=== PATIENT | female | born 1945 | race Caucasian/White ===

== ENCOUNTER → 2023-06-29 | Emergency (ER) | payer OTHER, MEDICARE ==
[~2023-06-29] MED LIST: KETOROLAC 30 MG/ML INJ ONE
--- OUTSIDE RECORDS SUMMARY | 2023-06-29 03:14 | XMS REPORT | Continuity of Care Document ---
Author Name Unknown Address [address] [facility] [address] [place] [address] [facility] thconnect Address [address] [facility] 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 Role Phone Kelechi Santino Rebecca Primary Care Physician [phone] Pool Jarvis DPM Attending Clinician [phone] POOL JARVIS Attending Clinician Unavailable Pool Jarvis DPM Admitting Clinician [phone] POOL JARVIS Admitting Clinician Unavailable Payers Payer Name Policy Type Policy Number Effective Date Expirati on Date Source Allergies, Adverse Reactions, Alerts Allergy Name Allergy Type Status Severity Reaction(s) Onset Date Inactive Date Treating Clinician Comments Source NO KNOWN ALLERGIE S Drug Class Active [facility] Social History Social Habit Start Date Stop Date Quantity Comments Source [facility] of Social function 2023-04-26 00:00:00 2023-04-26 00:00:00 [facility] Tobacco use and exposure 2023-04-22 00:00:00 2023-04-22 00:00:00 Smokeless tobacco non-user [facility] Sex Assigned At 1945 00:00:00 1945 00:00:00 [facility] Smoking Status Start Date Stop Date Source Never smoked tobacco [facility] Medications Ordered Medication Name Filled Medication Name Start Date Stop Date Current Medication? Ordering Clinician Indication Dosage Frequency Signature (SIG) Comments Components Source montelukast 10 mg tablet 2022-05 08:47: 07 Yes 10mg Take 1 tablet by mouth. [facility] multivit/fo lic acid/vit K1 (WOMEN'S 50 PLUS ADVANCED ORAL) 2022-05 08:47: 07 Yes 1{tbl} Take 1 tablet by mouth in the morning. [facility] fish oil/borage/ flax/om3,6, 9 1 (OMEGA 3-6-9 ORAL) 2022-05 08:47: 07 Yes 1{capsu le} Take 1 capsule by mouth in the morning. [facility] Cholecalcif reed, Vitamin D3, (VITAMIN D3) 50 mcg (2,000 unit) capsule 2022-05 08:47: 07 Yes 2000U Take 1 capsule by mouth in the morning. [facility] plant stanol ayla (CHOLEST OFF ORAL) 2022-05 08:47: 07 Yes 2{tbl} Take 2 tablets by mouth in the morning. [facility] montelukast 10 mg tablet 2022-05 08:47: 07 Yes 10mg Take 1 tablet by mouth. [facility] multivit/fo lic acid/vit K1 (WOMEN'S 50 PLUS ADVANCED ORAL) 2022-05 08:47: 07 Yes 1{tbl} Take 1 tablet by mouth in the morning. [facility] fish oil/borage/ flax/om3,6, 9 1 (OMEGA 3-6-9 ORAL) 2022-05 08:47: 07 Yes 1{capsu le} Take 1 capsule by mouth in the morning. [facility] Cholecalcif reed, Vitamin D3, (VITAMIN D3) 50 mcg (2,000 unit) capsule 2022-05 08:47: 07 Yes 2000U Take 1 capsule by mouth in the morning. [facility] plant stanol ayla (CHOLEST OFF ORAL) 2022-05 08:47: 07 Yes 2{tbl} Take 2 tablets by mouth in the morning. [facility] montelukast 10 mg tablet 2022-05 08:47: 07 Yes 10mg Take 1 tablet by mouth. [facility] multivit/fo lic acid/vit K1 (WOMEN'S 50 PLUS ADVANCED ORAL) 2022-05 2 08:47: 07 Yes 1{tbl} Take 1 tablet by mouth in the morning. [facility] fish oil/borage/ flax/om3,6, 9 1 (OMEGA 3-6-9 ORAL) 2022-05 2 08:47: 07 Yes 1{capsu le} Take 1 capsule by mouth in the morning. [facility] Cholecalcif reed, Vitamin D3, (VITAMIN D3) 50 mcg (2,000 unit) capsule 2022-05 08:47: 07 Yes 2000U Take 1 capsule by mouth in the morning. [facility] plant stanol ayla (CHOLEST OFF ORAL) 2022-05 08:47: 07 Yes 2{tbl} Take 2 tablets by mouth in the morning. [facility] HYDROcodone -acetaminop hen (NORCO 5) 5-325 mg tablet 1 tablet 2022-05 16:45: 00 04-26 16:36 :00 No 1{tbl} 1 tablet, Oral, ONCE, 1 dose, On Sat04/26/23 at 1045, Routine, PACU [facility] HYDROcodone -acetaminop hen (NORCO 5) 5-325 mg tablet 1 tablet 2022-05 16:45: 00 04-26 16:36 :00 No 1{tbl} 1 tablet, Oral, ONCE, 1 dose, On Sat04/26/23 at 1045, Routine, PACU [facility] HYDROcodone -acetaminop hen (NORCO 5) 5-325 mg tablet 1 tablet 2022-05 16:45: 00 04-26 16:36 :00 No 1{tbl} 1 tablet, Oral, ONCE, 1 dose, On Sat04/26/23 at 1045, Routine, PACU [facility] HYDROcodone -acetaminop hen (NORCO 5) 5-325 mg tablet 1 tablet 2022-05 16:45: 00 04-26 16:36 :00 No 1{tbl} 1 tablet, Oral, ONCE, 1 dose, On Sat04/26/23 at 1045, Routine, PACU [facility] ondansetron (ZOFRAN (PF)) injection 4 mg 2022-05 16:34: 00 Yes 4mg 4 mg, Slow IV Push, PRN, 1 dose, Starting on Sat04/26/23 at 1034, Until Discontinu ed, Routine, Nausea and Vomiting (N/V), PACU [facility] FENTanyl PF (SUBLIMAZE (PF)) injection 25 mcg 2022-05 16:34: 00 04-26 17:15 :00 No 25ug 25 mcg, Slow IV Push, Q5MIN PRN, 4 doses, Starting on Sat04/26/23 at 1034, Until Discontinu ed, Routine, Pain (scale 4-6), PACU [facility] FENTanyl PF (SUBLIMAZE (PF)) injection 25 mcg 2022-05 16:34: 00 04-26 17:15 :00 No 25ug 25 mcg, Slow IV Push, Q5MIN PRN, 4 doses, Starting on Sat04/26/23 at 1034, Until Discontinu ed, Routine, Pain (scale 4-6), PACU [facility] FENTanyl PF (SUBLIMAZE (PF)) injection 25 mcg 2022-05 16:34: 00 04-26 17:15 :00 No 25ug 25 mcg, Slow IV Push, Q5MIN PRN, 4 doses, Starting on Sat04/26/23 at 1034, Until Discontinu ed, Routine, Pain (scale 4-6), PACU [facility] FENTanyl PF (SUBLIMAZE (PF)) injection 25 mcg 2022-05 16:34: 00 04-26 17:15 :00 No 25ug 25 mcg, Slow IV Push, Q5MIN PRN, 4 doses, Starting on Sat04/26/23 at 1034, Until Discontinu ed, Routine, Pain (scale 4-6), PACU [facility] sodium chloride 0.9 % irrigation solution 2022-05 15:06: 00 04-26 16:48 :40 No PRN, Starting on Sat04/26/23 at 0906, Until Sat04/26/23 at 1048, Intra-op [facility] sodium chloride 0.9 % irrigation solution 2022-05 15:06: 00 04-26 16:48 :40 No PRN, Starting on Sat04/26/23 at 0906, Until Sat04/26/23 at 1048, Intra-op [facility] bupivacaine (preserv free) 0.5% (SENSORCAIN E MPF) 30 mL, lidocaine 1% (PF) (XYLOCAINE) 30 mL 2022-05 14:53: 00 04-26 16:48 :40 No PRN, Starting on Sat04/26/23 at 0853, Intra-op [facility] bupivacaine (preserv free) 0.5% (SENSORCAIN E MPF) 30 mL, lidocaine 1% (PF) (XYLOCAINE) 30 mL 2022-05 14:53: 00 04-26 16:48 :40 No PRN, Starting on Sat04/26/23 at 0853, Intra-op [facility] lactated ringers IV infusion 1,000 mL 2022-05 13:30: 00 04-26 13:39 :00 No 1000mL at 42 mL/hr, 1,000 mL, IV Infusion, ONCE, 1 dose, On Sat04/26/23 at 0730, Routine, DSU Pre-op [facility] lactated ringers IV infusion 1,000 mL 2022-05 13:30: 00 04-26 13:39 :00 No 1000mL at 42 mL/hr, 1,000 mL, IV Infusion, ONCE, 1 dose, On Sat04/26/23 at 0730, Routine, DSU Pre-op [facility] lactated ringers IV infusion 1,000 mL 2022-05 13:30: 00 04-26 13:39 :00 No 1000mL at 42 mL/hr, 1,000 mL, IV Infusion, ONCE, 1 dose, On Sat04/26/23 at 0730, Routine, [facility]SU [facility] lactated ringers [facility] infusion 1,000 mL 2022-05 13:30: 00 04-26 13:39 :00 No 1000mL at 42 mL/hr, 1,000 mL, IV Infusion, ONCE, 1 dose, On Sat04/26/23 at 0730, Routine, DSU Pre-op [facility] montelukast 10 mg tablet 2022-05 12:05: 20 Yes 10mg Take 1 tablet by mouth. [facility] multivit/fo lic acid/vit K1 (WOMEN'S 50 PLUS ADVANCED ORAL) 2022-05 12:05: 20 Yes 1{tbl} Take 1 tablet by mouth in the morning. [facility] fish oil/borage/ flax/om3,6, 9 1 (OMEGA 3-6-9 ORAL) 2022-05 12:05: 20 Yes 1{capsu le} Take 1 capsule by mouth in the morning. [facility] Cholecalcif reed, Vitamin D3, (VITAMIN D3) 50 mcg (2,000 unit) capsule 2022-05 12:05: 20 Yes 2000U Take 1 capsule by mouth in the morning. [facility] plant stanol ayla (CHOLEST OFF ORAL) 2022-05 12:05: 20 Yes 2{tbl} Take 2 tablets by mouth in the morning. [facility] aspirin 325 mg tablet 2022-05 00:00: 00 05-25 05:59 :00 Yes [id number] 325mg Take 1 tablet by mouth in the morning and 1 tablet in the evening. Take with meals. Do all this for 28 days. [facility] aspirin 325 mg tablet 2022-05 00:00: 00 05-25 05:59 :00 Yes [id number] 325mg Take 1 tablet by mouth in the morning and 1 tablet in the evening. Take with meals. Do all this for 28 days. [facility] aspirin 325 mg tablet 2022-05 00:00: 00 05-25 05:59 :00 Yes [id number] 325mg Take 1 tablet by mouth in the morning and 1 tablet in the evening. Take with meals. Do all this for 28 days. [facility] aspirin 325 mg tablet 2022-05 00:00: 00 05-25 05:59 :00 Yes [id number] 325mg Take 1 tablet by mouth in the morning and 1 tablet in the evening. Take with meals. Do all this for 28 days. [facility] Immunizations Ordered Immunization Name Filled Immunization Name Date Status Comments Source SARS-COV-2 COVID-19 PFIZER VACCINE Unknown Completed [facility] SARS-COV-2 COVID-19 PFIZER VACCINE Unknown Completed [facility] SARS-COV-2 COVID-19 PFIZER VACCINE Unknown Completed [facility] SARS-COV-2 COVID-19 PFIZER VACCINE Unknown Completed [facility] SARS-COV-2 COVID-19 PFIZER VACCINE Unknown Completed [facility] SARS-COV-2 COVID-19 PFIZER VACCINE Unknown Completed [facility] SARS-COV-2 COVID-19 PFIZER VACCINE Unknown Completed [facility] SARS-COV-2 COVID-19 PFIZER VACCINE Unknown Completed [facility] Vital Signs Vital Name Observation Time Observation Value Comments S ource Systolic blood pressure 2023-04-26 17:35:00 111 mm[Hg] [facility] Diastolic blood pressure 2023-04-26 17:35:00 68 mm[Hg] [facility] Heart rate 2023-04-26 17:35:00 87 /min [facility] Oxygen saturation in Arterial blood by Pulse oximetry 2023-04-26 17:35:00 94 /min [facility] Respiratory rate 2023-04-26 17:30:00 15 /min [facility] Body temperature 2023-04-26 16:10:00 36.67 Molly [facility] Body height 2023-04-22 22:00:00 165.1 cm [facility] Body weight 2023-04-22 22:00:00 78.019 kg [facility] BMI 2023-04-22 22:00:00 28.62 kg/m2 [facility] Systolic blood pressure 2023-04-26 16:15:00 131 mm[Hg] [facility] Diastolic blood pressure 2023-04-26 16:15:00 63 mm[Hg] [facility] Heart rate 2023-04-26 16:15:00 87 /min [facility] Respiratory rate 2023-04-26 16:15:00 15 /min [facility] Oxygen saturation in Arterial blood by Pulse oximetry 2023-04-26 16:15:00 97 /min [facility] Body temperature 2023-04-26 16:10:00 36.67 Molly [facility] Body height 2023-04-22 22:00:00 165.1 cm [facility] Body weight 2023-04-22 22:00:00 78.019 kg [facility] BMI 2023-04-22 22:00:00 28.62 kg/m2 [facility] Procedures Procedure Date / Time Performed Performing Clinician Source FL TIME OR (NON-REPORTABLE) 2023-04-26 16:45:00 Pool Jarvis [facility] FL TIME OR (NON-REPORTABLE) 2023-04-26 16:45:00 Pool Jarvis [facility] CHEILECTOMY 2023-04-26 14:15:00 Pool Jarvis [facility] ALLOGRAFT APPLICATION 2023-04-26 14:15:00 Marquis Jarvis [facility] CHEILECTOMY 2023-04-26 14:15:00 [facility] ALLOGRAFT APPLICATION 2023-04-26 14:15:00 Marquis Jarvis [facility] EXTERNAL PROVIDER RECORDS 2023-04-22 06:01:00 Doctor Unassigned, Higbee [facility] EXTERNAL PROVIDER RECORDS 2023-04-22 06:01:00 Doctor Unassigned, Higbee [facility] Encounters Start Date/Time End Date/Time Encounter Type Admission Type Attending Clinicians Care Facility Care Department Encounter ID Source 2023-04-26 07:14:00 2023-04-27 11:53:00 Hospital Encounter Pool Jarvis [facility] [id number] [facility] 2023-04-26 07:14:00 2023-04-26 11:53:00 Outpatient R POOL JARVIS [facility] [id number] [facility] 2023-04-26 08:00:00 2023-04-26 10:15:00 Surgery Pool Jarvis [facility] [id number] [facility]
[2023-06-29 06:13] LABS: Absolute Lymphocytes (CBC) 4.2 K/uL (0.7-4.9); Hematocrit 37.7 % (36.0-45.0); Lymphocytes % 30.2 % (15.3-44.8); MCV 84.3 fL (80-100); MPV 7.9 fL (7.6-11.3); Platelets 329 thou/uL (152-406); RBC Red Blood Cell Count 4.47 M/uL (3.86-4.86)
[2023-06-29 06:41] LABS: Potassium 3.7 mEq/L (3.5-5.1); Troponin High Sensitivity 7.5 pg/mL (<58.9)
--- NOTE | 2023-06-29 08:16 | ER ---
Nurse's Notes [facility] Name: Eileen Jett Age: 77 yrs Sex: Female : 1945 Arrival Date: 06/29/2023 Time: 03:11 Bed 18 Private MD: Santino Lorenz; Vamsi Lorenz C Diagnosis: Acute upper respiratory infection, unspecified;Sprain of ribs;Pleurisy Presentation: 06/29 03:26 Chief complaint: Patient states: Trang been sick for a couple weeks. I was put on jb4 amoxicillin and steroids for 9 days on Saturday. I get these coughing episodes and I used my inhaler and I got this pain in my back and my sides. I went to bed around midnight. I could hardly catch my breath. Its a sharp pain across my midback. Coronavirus screen: At this time, the client does not indicate any symptoms associated with coronavirus-19. Ebola Screen: No symptoms or risks identified at this time. Initial Sepsis Screen: Does the patient meet any 2 criteria? No. Patient's initial sepsis screen is negative. Does the patient have a suspected source of infection? No. Patient's initial sepsis screen is negative. Risk Assessment: Do you want to hurt yourself or someone else? Patient reports no desire to harm self or others. Onset of symptoms was June 29, 2023. Transition of care: patient was not received from another setting of care. 03:26 Method Of Arrival: Ambulatory jb4 03:26 Acuity: ACE 3 jb4 Historical: - Allergies: 03:28 No Known Allergies; jb4 - PMHx: 03:28 None; jb4 - PSHx: 03:28 Right first toe; hysterectomy; Appendectomy; Left foot; jb4 - Immunization history:: Adult Immunizations up to date. - Social history:: Smoking status: Patient/guardian denies using tobacco, the patient reports quitting approximately 41 years ago, Patient/guardian denies using alcohol, street drugs. - History obtained from: daughter. Screenin:55 [facility] ED Fall Risk Assessment (Adult) History of falling in the last 3 months, tm6 including since admission No falls in past 3 months (0 pts). Abuse screen: Denies threats or abuse. Denies injuries from another. Nutritional screening: No deficits noted. Tuberculosis screening: No symptoms or risk factors identified. Assessment: 03:55 General: Appears distressed, Behavior is cooperative. Pain: Complains of pain in right tm6 low back Pain currently is 9 out of 10 on a pain scale. Quality of pain is described as sharp, Aggravated by coughing. Neuro: Level of Consciousness is awake, alert, obeys commands, Oriented to person, place, time, situation. Cardiovascular: Capillary refill < 3 seconds Patient's skin is warm and dry. Respiratory: Reports cough that is non-productive, pain with cough pain with movement Airway is patent Respiratory effort is even, unlabored, Respiratory pattern is regular, symmetrical. GI: Abdomen is flat, non-distended. : No signs and/or symptoms were reported regarding the genitourinary system. EENT: No signs and/or symptoms were reported regarding the EENT system. Derm: No signs and/or symptoms reported regarding the dermatologic system. Musculoskeletal: No signs and/or symptoms reported regarding the musculoskeletal system. 05:36 Reassessment: Patient appears in no apparent distress at this time. No changes from tm6 previously documented assessment. Patient and/or family updated on plan of care and expected duration. Pain level reassessed. Patient is alert, oriented x 3, equal unlabored respirations, skin warm/dry/pink. 06:10 Reassessment: Patient appears in no apparent distress at this time. No changes from tm6 previously documented assessment. Patient and/or family updated on plan of care and expected duration. Pain level reassessed. 07:00 Reassessment: Patient appears in no apparent distress at this time. tm6 08:04 Reassessment: Patient appears in no apparent distress at this time. Patient and/or db family updated on plan of care and expected duration. Pain level reassessed. Patient is alert, oriented x 3, equal unlabored respirations, skin warm/dry/pink. Vital Signs: 03:26 BP 149 / 84; Pulse 81; Resp 20; Temp 99.1(TE); Pulse Ox 100% on R/A; Weight 77.11 kg jb4 (R); Height 5 ft. 5 in. (R); Pain 9/10; 05:35 BP 116 / 90; Pulse 76; Resp 23; Pulse Ox 100% on R/A; Pain 9/10; tm6 06:09 BP 155 / 74; Pulse 67; Pulse Ox 98% on R/A; Pain 6/10; tm6 07:00 BP 153 / 73; Pulse 81; Pulse Ox 97% on R/A; tm6 07:05 BP 145 / 73; Pulse 71; Resp 18; Pulse Ox 97% on R/A; db 07:30 BP 148 / 74; Pulse 69; Resp 27; Pulse Ox 98% on R/A; db 03:26 Body Mass Index 28.29 (77.11 kg, 165.1 cm) jb4 03:26 Pain Scale: Adult jb4 05:35 Pain Scale: Adult tm6 06:09 Pain Scale: Adult tm6 ED Course: 03:17 Patient arrived in ED. gm2 03:17 Vamsi Lorenz MD is Private Physician. gm2 03:17 Santino Lorenz MD is Private Physician. gm2 03:28 Triage completed. jb4 03:28 Arm band placed on right wrist. jb4 03:55 Rashaun Fitzgerald, DUANE is Primary Nurse. tm6 03:55 Patient has correct armband on for positive identification. Bed in low position. Call tm6 light in reach. Side rails up X2. Provided Education on: plan of care. Client placed on continuous cardiac and pulse oximetry monitoring. NIBP monitoring applied. Door closed. Noise minimized. Lights dimmed. Warm blanket given. 04:26 Camilla Cherry is Attending Physician. ci 05:40 COVID-19 SARS RT PCR Sent. tm6 05:40 Flu Sent. tm6 05:40 Inserted saline lock: 22 gauge in right antecubital area, using aseptic technique. tm6 05:41 Missed attempt(s): 20 gauge in right antecubital area. tm6 05:41 Missed attempt(s): 20 gauge in left antecubital area. tm6 05:56 XRAY Chest (1 view) In Process Unspecified. EDMS 05:58 CT Chest Wo Con In Process Unspecified. EDMS 08:20 No provider procedures requiring assistance completed. IV discontinued, intact, db bleeding controlled. Administered Medications: 05:40 Drug: TORadol - Ketorolac IVP 15 mg IVP once Route: IVP; Site: right antecubital; tm6 08:40 Follow up: Response: No adverse reaction db Medication: 03:55 VIS not applicable for this client. tm6 Outcome: 08:15 Discharge ordered by . ci 08:20 Discharged to home ambulatory, with family, lauren 08:20 Condition: stable 08:20 Discharge instructions given to patient, Instructed on discharge instructions, follow up and referral plans. Prescriptions given X 1, 08:40 Patient left the ED. db Signatures: Dispatcher [employer] EDMS Johnny Travis, RN RN jb4 Shakila Zazueta RN RN db Camilla Cherry Ginger 2 Rashaun Fitzgerald, RN RN tm6
--- NOTE | 2023-06-29 08:16 | EDPHYS ---
Physician Documentation [facility] Name: Eileen Jett Age: 77 yrs Sex: Female : 1945 Arrival Date: 06/29/2023 Time: 03:11 Bed 18 Private MD: Santino Lorenz; Vamsi Lorenz C ED Physician Camilla Cherry HPI: 06/29 08:00 This 77 yrs old Female presents to ER via Ambulatory with complaints of Back Pain. ci 08:00 Patient is a 77-year-old female who presents with right-sided rib pain that began last ci night after she was coughing. Patient was recently diagnosed with upper respiratory infection and started on steroids, Augmentin by PCP. Patient reports she had a bad bout of coughing and developed rib pain that radiates to her back. No trauma/falls. Denies any back pain, saddle anesthesia. Historical: - Allergies: 03:28 No Known Allergies; jb4 - PMHx: 03:28 None; jb4 - PSHx: 03:28 Right first toe; hysterectomy; Appendectomy; Left foot; jb4 - Immunization history:: Adult Immunizations up to date. - Social history:: Smoking status: Patient/guardian denies using tobacco, the patient reports quitting approximately 41 years ago, Patient/guardian denies using alcohol, street drugs. - History obtained from: daughter. ROS: 08:00 Constitutional: Negative for fever, chills, and weight loss, Cardiovascular: Negative ci for chest pain, palpitations, and edema, Respiratory: Negative for shortness of breath, cough, wheezing, and pleuritic chest pain, Vital Signs: 03:26 BP 149 / 84; Pulse 81; Resp 20; Temp 99.1(TE); Pulse Ox 100% on R/A; Weight 77.11 kg jb4 (R); Height 5 ft. 5 in. (R); Pain 9/10; 05:35 BP 116 / 90; Pulse 76; Resp 23; Pulse Ox 100% on R/A; Pain 9/10; tm6 06:09 BP 155 / 74; Pulse 67; Pulse Ox 98% on R/A; Pain 6/10; tm6 07:00 BP 153 / 73; Pulse 81; Pulse Ox 97% on R/A; tm6 07:05 BP 145 / 73; Pulse 71; Resp 18; Pulse Ox 97% on R/A; db 07:30 BP 148 / 74; Pulse 69; Resp 27; Pulse Ox 98% on R/A; db 03:26 Body Mass Index 28.29 (77.11 kg, 165.1 cm) jb4 03:26 Pain Scale: Adult jb4 05:35 Pain Scale: Adult tm6 06:09 Pain Scale: Adult tm6 MDM: 04:26 Patient medically screened. ci 08:10 Differential diagnosis: Pleurisy, rib fracture, pneumonia, musculoskeletal pain, PE, ci pneumothorax, ACS. Data reviewed: vital signs, nurses notes. 08:11 ED course: Patient reports pain is significantly improved. Reproducible tenderness to ci palpation to the right lateral chest wall. No hypoxia, no tachycardia, denies PE risk factors. Symptoms started after she had a bad episode of coughing. EKG shows sinus rhythm, no acute ischemic changes. Will DC with cough suppressant, naproxen. Patient has an appointment with PCP in 3 days. Instructed to follow-up with PCP and to return to the ED for worsening symptoms.. 06/29 05:09 Order name: Basic Metabolic Panel; Complete Time: 07:58 ci 02/03 05:09 Order name: CBC with Diff; Complete Time: 07:58 ci 02/03 05:09 Order name: Magnesium; Complete Time: 07:58 ci 02/03 05:09 Order name: NT PRO-BNP; Complete Time: 07:58 ci 02/03 05:09 Order name: Troponin HS; Complete Time: 07:58 ci 02/03 05:11 Order name: COVID-19 SARS RT PCR; Complete Time: 08:16 ci 02/03 05:11 Order name: Flu; Complete Time: 07:58 ci 02/03 05:09 Order name: XRAY Chest (1 view) ci 02/03 05:09 Order name: CT Chest Wo Con ci 02/03 05:09 Order name: EKG; Complete Time: 05:10 ci 02/ 05:09 Order name: Cardiac monitoring; Complete Time: 05:21 ci 02/03 05:09 Order name: EKG - Nurse/Tech; Complete Time: 05:21 ci 02/03 05:09 Order name: IV Saline Lock; Complete Time: 05:40 ci 02/03 05:09 Order name: Labs collected and sent; Complete Time: 05:40 ci 06/29 05:09 Order name: O2 Per Protocol; Complete Time: 05:12 ci 06/29 05:09 Order name: O2 Sat Monitoring; Complete Time: 05:12 ci Administered Medications: 05:40 Drug: TORadol - Ketorolac IVP 15 mg IVP once Route: IVP; Site: right antecubital; tm6 08:40 Follow up: Response: No adverse reaction db Disposition Summary: 06/29/23 08:15 Discharge Ordered Notes: Location: Home ci Problem: an acute exacerbation ci Symptoms: are resolved ci Condition: Stable ci Diagnosis - Acute upper respiratory infection, unspecified ci - Sprain of ribs ci - Pleurisy ci Followup: ci - With: Private Physician - When: 1 - 2 days - Reason: Recheck today's complaints, Re-evaluation by your physician Discharge Instructions: - Discharge Summary Sheet ci - Upper Respiratory Infection, Adult, [id number] ci - Pleurisy, [id number] ci Forms: - Medication Reconciliation Form ci - Thank You Letter ci - Antibiotic Education ci - Prescription Opioid Use ci - Patient Portal Instructions ci - Leadership Thank You Letter ci Prescriptions: - Anaprox DS 550 mg Oral Tablet - take 1 tablet ORAL route every 12 hours As needed; 20 tablet; Refills: 0, ci Product Selection Permitted Signatures: Dispatcher [employer] Johnny White, RN RN jb4 IheonunekwuCamilla Tawney, RN RN tm6 Shakila Zazueta RN db Corrections: (The following items were deleted from the chart) 08:17 08:10 Differential diagnosis: Rib fracture, pneumonia, musculoskeletal pain, PE, ci pneumothorax, ACS ci
[2023-06-29 09:11] VITALS: BP 148/74; TEMP 99.1; O2SAT 98
--- NOTE | 2023-06-29 20:20 | RAD REPORT ---
EXAM DESCRIPTION: CT CHEST WITHOUT IV CONTRAST CLINICAL HISTORY: CHEST PAIN COMPARISON: None. TECHNIQUE: CT CHEST WITHOUT IV CONTRAST on 06/29/2023 5:09 AM [employer] This exam was performed according to our departmental dose-optimization program, which includes autom ated exposure control, adjustment of the mA and/or kV according to patient size and/or use of iterati ve reconstruction technique. FINDINGS: The heart is normal in size. There is no pericardial effusion. Intrathoracic lymph nodes a re not enlarged. There is no pleural effusion, pleural thickening or pneumothorax. Central airways are patent. Lungs a re clear with no consolidation, mass or interstitial lung disease. There are no acute abnormalities within the limited images of the upper abdomen. There are no acute osseous findings. No suspicious bony lesions. IMPRESSION: No acute findings. Electronically signed by: Marcos Rob MD 06/29/2023 06:44 AM [employer] Due to temporary technical issues with the PACS/Fluency reporting system, reports are being signed by the in house radiologists without review as a courtesy to insure prompt reporting. The interpreting radiologist is fully responsible for the content of the report.
--- NOTE | 2023-06-29 20:31 | RAD REPORT ---
EXAM DESCRIPTION: XR CHEST 1 VIEW CLINICAL HISTORY: CHEST PAIN COMPARISON: None. TECHNIQUE: XR CHEST 1 VIEW 06/29/2023 5:09 AM CLINICAL RESEARCH TECHNICIAN FINDINGS: Cardiac silhouette is normal in size. Lungs are clear without consolidation, atelectasis, mass or edema. There is no pleural effusion. There is no pneumothorax. There are no acute osseous fin dings. IMPRESSION: Clear lungs. Electronically signed by: Marcos Rob MD 06/29/2023 06:43 AM CLINICAL RESEARCH TECHNICIAN Due to temporary technical issues with the PACS/Fluency reporting system, reports are being signed by the in house radiologists without review as a courtesy to insure prompt reporting. The interpreting radiologist is fully responsible for the content of the report.
--- NOTE | 2023-07-01 15:06 | EKG ---
Test Date: 2023-06-29 Test Time: 05:18:06 [employer]: [employer] MEASUREMENT RESULTS: Intervals: Rate: 68 GA: 136 QRSD: 88 QT: 416 QTc: 442 [place]: P: 69 GA: 136 QRS: 20 T: 77 INTERPRETIVE STATEMENTS: Normal sinus rhythm Normal ECG Compared to ECG 10/24/2012 09:41:42 No significant changes Electronically Signed On 07-01-23 15:00:31 [employer] by Horacio King
== END ==
LOC: ER 03:11
DX: S23.41XA Sprain of ribs, initial encounter (principal); J06.9 Acute upper respiratory infection, unspecified; R09.1 Pleurisy; Z11.52 Encounter for screening for COVID-19
CPT/HCPCS: 36415; 71045; 71250; 80048; 83735; 83880; 84484; 85025; 87635; 87804; 93005